=== PATIENT | male | born 1985 | race Caucasian/White ===

== ENCOUNTER 2023-08-28 09:27 | Emergency (ER) | payer MEDICAID ==
[2023-08-28 09:54] LABS: BASOPHILS ABSOLUTE AUTO 0.05 K/uL (0.02-0.10); BASOPHILS PERCENT AUTO 0.7 % (0.0-0.5); EOSINOPHILS ABSOLUTE AUTO 0.33 K/uL (0.04-0.40); EOSINOPHILS PERCENT AUTO 4.7 % (1.0-5.0); HEMATOCRIT 45.4 % (40.0-54.0); HEMOGLOBIN 15.9 g/dL (13.0-18.0); LYMPHOCYTES ABSOLUTE AUTO 2.05 K/uL (1.50-4.00); MEAN CORPUSCULAR HEMOGLOBIN 32.5 pg (27.0-32.0); MEAN CORPUSCULAR VOLUME 93 fL (76-96); MONOCYTES ABSOLUTE AUTO 0.68 K/uL (0.20-0.80); MONOCYTES PERCENT AUTO 9.6 % (3.0-10.0); NEUTROPHILS ABSOLUTE AUTO 3.97 K/uL (2.00-7.50); PLATELET COUNT,PLT 336 K/uL (150-400); RED BLOOD CELL COUNT 4.89 M/uL (4.50-6.50); RED CELL DISTRIBUTION WIDTH 12.8 % (11.0-16.0); WHITE BLOOD CELL COUNT,WBC 7.1 K/uL (4.0-11.0)
[2023-08-28 10:05] LABS: APPEARANCE,URINE CLEAR (CLEAR); BILIRUBIN,URINE NEGATIVE (NEGATIVE); COLOR,URINE YELLOW; GLUCOSE,URINE NEGATIVE (NEGATIVE); KETONES,URINE NEGATIVE (NEGATIVE); LEUKOCYTE ESTERASE,URINE NEGATIVE (NEGATIVE); NITRITE,URINE NEGATIVE (NEGATIVE); OCCULT BLOOD,URINE TRACE-INTACT (NEGATIVE); PROTEIN,URINE NEGATIVE (NEGATIVE); UROBILINOGEN,URINE 0.2 E.U./dL (0.2-1.0)
[2023-08-28 10:10] LABS: RBC,URINE 0-5 /HPF; WBC,URINE NOT SEEN /HPF
[2023-08-28 10:12] LABS: AMPHETAMINES SCREEN, URINE NEGATIVE (NEGATIVE); BARBITURATE SCREEN,URINE NEGATIVE (NEGATIVE); BENZODIAZEPINES SCREEN,URINE NEGATIVE (NEGATIVE); METHADONE SCREEN, URINE NEGATIVE (NEGATIVE); METHAMPHETAMINES SCREEN, URINE NEGATIVE (NEGATIVE); OXYCODONE SCREEN,URINE NEGATIVE (NEGATIVE); THC SCREEN,URINE 50 NG/ML POSITIVE (NEGATIVE)
[2023-08-28 10:17] LABS: A/G RATIO 1.3 (0.8-2.0); ALBUMIN 4.4 g/dL (3.4-5.0); ANION GAP 13.4 mmol/L (5.0-15.0); BILIRUBIN TOTAL 0.5 mg/dL (0.0-1.0); BUN/CREATININE RATIO 5.7 (6-25); CALCIUM 9.2 mg/dL (8.5-10.1); CARBON DIOXIDE,CO2 27.4 mmol/L (21.0-32.0); CREATININE 0.88 mg/dL (0.70-1.30); EST CRCL DRUG DOSING (CG) 121.22 mL/min; POTASSIUM,K 3.8 mmol/L (3.5-5.1); PROTEIN TOTAL,TP 7.9 g/dL (6.4-8.2)
[2023-08-28] MEDS: diphenhydrAMINE 50 MG Cap PO ONE (10:23)
[2023-08-28] MEDS: LORazepam 2 MG/ML SDV IM ONE (10:42)
[2023-08-28] MEDS: diphenhydrAMINE 50 MG Cap ONE (10:43)
[2023-08-28] MEDS: LORazepam 2 MG/ML SDV ONE (10:43)
[2023-08-28] MEDS: Nicotine 21 MG/24 Hr Patch TRDERM ONE (11:32)
== END 2023-08-28 14:23 ==
LOC: LB.ED 09:27
DX: R45.1 Restlessness and agitation (principal); F17.210 Nicotine dependence, cigarettes, uncomplicated; Z20.822 Contact with and (suspected) exposure to COVID-19
CPT/HCPCS: 36415; 80053; 80307; 81001; 85025; 96372; 99285; A9270-GY; J2060; U0002